=== PATIENT | male | born 1975 | race Hispanic/Latino ===

== ENCOUNTER 2018-04-30 08:02 | Emergency (ER) | payer SELFPAY ==
[2018-04-30] MEDS ORDERED: KETOROLAC TROMETHAMINE 60 MG/2 ML VIAL ONE (08:33)
[2018-04-30] MEDS ORDERED: HYDROCODONE/ACETAMINOPHEN 10/325 MG TAB ONE (08:34)
== END 2018-04-30 10:12 | disposition home or self-care (01) ==
LOC: EDH 08:02
DX: M54.5 Low back pain (principal); G89.29 Other chronic pain; F41.9 Anxiety disorder, unspecified; Z88.0 Allergy status to penicillin; Z79.899 Other long term (current) drug therapy
CPT/HCPCS: 96372; 99283; J1885

== ENCOUNTER 2018-07-17 19:01 | Emergency (ER) | payer OTHER, SELFPAY | END 2018-07-17 19:55 | disposition home or self-care (01) | LOC: EDH 19:01 | DX: M54.16 Radiculopathy, lumbar region (principal); F41.9 Anxiety disorder, unspecified; Z88.0 Allergy status to penicillin | CPT/HCPCS: 99281 ==